=== PATIENT | male | born 1990 | race Caucasian/White ===

== ENCOUNTER 2020-07-21 12:04 | Emergency (ER) | payer OTHER ==
[~2020-07-21] VITALS: Ht 170.2 cm; Wt 74.7 kg
[2020-07-21] MEDS ORDERED: ONDANSETRON PF 4 MG/2 ML VIAL. IVP ONE (12:15)
[2020-07-21] MEDS ORDERED: IV NORMAL SALINE 1000ML BAG 1,000 ML IV ONE (12:15)
[2020-07-21 13:03] LABS: BASO % 0 % (0-3); EOS # 0.3 x10^3/uL (0.0-0.7); EOS % 4 % (0-3); HEMATOCRIT 43.4 % (39.0-53.0); HEMOGLOBIN 15.1 g/dL (13.0-17.5); LYMPH # 1.4 x10^3/uL (1.0-4.8); LYMPH % 21 % (24-48); MEAN CORPUSCULAR HEMOGLOBIN 29 pg (25-35); MEAN CORPUSCULAR HGB CONC 35 g/dL (31-37); MEAN CORPUSCULAR VOLUME 85 fL (79-100); MONO # 0.9 x10^3/uL (0.0-1.1); MONO % 14 % (0-9); NEUT # 4.1 x10^3/uL (1.8-7.7); NEUT % 61 % (31-73); PLATELET COUNT 266 x10^3/uL (140-400); RED BLOOD COUNT 5.14 x10^6/uL (4.30-5.70); RED CELL DISTRIBUTION WIDTH 12.8 % (11.5-14.5); WHITE BLOOD COUNT 6.8 x10^3/uL (4.0-11.0)
[2020-07-21 13:13] LABS: CALCIUM 8.4 mg/dL (8.5-10.1)
[2020-07-21 13:19] LABS: ALBUMIN 3.8 g/dL (3.4-5.0); ALBUMIN/GLOBULIN RATIO 1.4 (1.0-1.7); MAGNESIUM 1.5 mg/dL (1.8-2.4); TOTAL PROTEIN 6.5 g/dL (6.4-8.2)
[2020-07-21 13:30] VITALS: BP 139/69
[2020-07-21 13:42] LABS: BILIRUBIN,URINE SMALL (NEG); CLARITY,URINE CLEAR; COLOR,URINE YELLOW; NITRITE,URINE NEGATIVE (NEG); PH,URINE 5.5 (<5.0-8.0); PROTEIN,URINE NEGATIVE (NEG-TRACE); UROBILINOGEN,URINE 0.2 mg/dL (0.2 mg/dL)
[2020-07-21] MEDS ORDERED: IOHEXOL 300 MG/ML 100ML VIAL. ONE (13:44)
[2020-07-21] MEDS ORDERED: CONTRAST GIVEN. MC PRN (13:45)
[2020-07-21] MEDS ORDERED: IOHEXOL 300 MG/ML 100ML VIAL. IV ONE (13:45)
[2020-07-21 13:56] LABS: BACTERIA,URINE 0 /HPF (0-FEW); RBC,URINE OCC /HPF (0-2)
--- NOTE | 2020-07-21 14:20 | RAD ---
INDICATION: Reason: left side abdominal pain / Spl. Instructions: [id number] 75ML [phone] / Histor y: . COMPARISON: None. TECHNIQUE: Axial CT images obtained through the abdomen and pelvis with contrast. One or more of the following individualized dose reduction techniques were utilized for this examinat ion: 1. Automated exposure control; 2. Adjustment of the mA and/or kV according to patient size; 3 . Use of iterative reconstruction technique. FINDINGS: Abdominal aorta is not aneurysmal. High density structures at the penile region could be calcifications or postoperative. No intrahepatic bile duct dilation. No peripancreatic fluid collection. Spleen unremarkable. No hydronephrosis. Small amount of fluid is seen within the right greater than left hemipelvis. This abuts the urinary b ladder but appears separate from it. The appendix is partially seen and does not appear dilated. There are scattered lymph nodes seen throughout the mesentery which are prominent. For example left s christina of the mesentery at the level of the kidneys measuring up to 10 mm short axis. No dilated loops of bowel to suggest obstruction. IMPRESSION: * No evidence of bowel obstruction. The partially visualized appendix does not appear grossly inflam ed. * Small amount of free fluid in the pelvis of unknown etiology. * There are some scattered prominent lymph nodes within the mesentery. Most commonly reactive in ariadna ure in a patient of this age unless they have history or risk factors for neoplasm. * No hydronephrosis. Electronically signed by: Akira Lan MD (07/21/2020 2:17 PM) [id number]
--- NOTE | 2020-07-21 14:27 | PHYS DOC ---
Past Medical History Past Medical History: Diabetes-Type I Additional Past Medical Histor: hep c Past Surgical History: Other Additional Past Surgical Histo: septum surgery, laser eye surgery Smoking Status: Former Smoker Alcohol Use: None General Adult EDM: Chief Complaint: NAUSEA/VOMITING/DIARRHEA HPI: HPI: Patient is a 30 year old male who was brought here from [facility] for evaluation of nausea vomiting diarrhea and left abdominal pain for the last 3 days. Patient denies any fever, no cough patient has history of diabetic, is on insulin. Patient denies any recent antibiotic usage, denies any blood in his stool. Review of Systems: Review of Systems: Constitutional: Denies fever or chills. [] Eyes: Denies change in visual acuity. [] HENT: Denies nasal congestion or sore throat. [] Respiratory: Denies cough or shortness of breath. [] Cardiovascular: Denies chest pain or edema. [] GI: Positive for left abdominal pain with nausea vomiting diarrhea : Denies dysuria. [] Musculoskeletal: Denies back pain or joint pain. [] Integument: Denies rash. [] Neurologic: Denies headache, focal weakness or sensory changes. [] Endocrine: Denies polyuria or polydipsia. [] Lymphatic: Denies swollen glands. [] Psychiatric: Denies depression or anxiety. [] Heart Score: C/O Chest Pain: N/A Risk Factors: Risk Factors: DM, Current or recent (<one month) smoker, HTN, HLP, family history of CAD, obesity. Risk Scores: Score 0 - 3: 2.5% MACE over next 6 weeks - Discharge Home Score 4 - 6: 20.3% MACE over next 6 weeks - Admit for Clinical Observation Score 7 - 10: 72.7% MACE over next 6 weeks - Early Invasive Strategies Current Medications: Current Medications Medications (Trade) Dose Ordered Sig/Tran Start Time Stop Time Status Last Admin Dose Admin Info (CONTRAST GIVEN -- Rx MONITORING) 1 each PRN DAILY PRN 07/21/20 13:45 07/23/20 13:44 Iohexol (Omnipaque 300 Mg/ml) 100 ml STK-MED ONCE 07/21/20 13:44 07/21/20 13:44 DC Magnesium Sulfate 50 ml @ 25 mls/hr 1X ONCE 07/21/20 14:30 07/21/20 16:29 UNV Ondansetron HCl (Zofran) 4 mg 1X ONCE 07/21/20 12:15 07/21/20 12:54 DC 07/21/20 12:57 4 MG Sodium Chloride 1,000 ml @ 1,000 mls/hr 1X ONCE 07/21/20 12:15 07/21/20 13:14 DC 07/21/20 12:58 1,000 MLS/HR Allergies: Allergies: Allergies Coded Allergies Type Severity Reaction Last Updated Verified linezolid Allergy Intermediate 07/21/20 Yes Physical Exam: PE: Constitutional: Well developed, well nourished, no acute distress, non-toxic appearance. [] HENT: Normocephalic, atraumatic, bilateral external ears normal, oropharynx moist, no oral exudates, nose normal. [] Eyes: PERRLA, EOMI, conjunctiva normal, no discharge. [] Neck: Normal range of motion, no tenderness, supple, no stridor. [] Cardiovascular:Heart rate regular rhythm, no murmur [] Lungs & Thorax: Bilateral breath sounds clear to auscultation [] Abdomen: Bowel sounds normal, soft, left upper quadrant and left lower quadrant abdominal pain, no guarding, no rebound. Skin: Warm, dry, no erythema, no rash. [] Back: No tenderness, no CVA tenderness. [] Extremities: No tenderness, no cyanosis, no clubbing, ROM intact, no edema. [] Neurologic: Alert and oriented X 3, normal motor function, normal sensory function, no focal deficits noted. [] Psychologic: Affect normal, judgement normal, mood normal. [] Current Patient Data: Labs: Laboratory Tests Test 07/21/20 12:50 07/21/20 13:30 White Blood Count 6.8 x10^3/uL (4.0-11.0) Red Blood Count 5.14 x10^6/uL (4.30-5.70) Hemoglobin 15.1 g/dL (13.0-17.5) Hematocrit 43.4 % (39.0-53.0) Mean Corpuscular Volume 85 fL (79-100) Mean Corpuscular Hemoglobin 29 pg (25-35) Mean Corpuscular Hemoglobin Concent 35 g/dL (31-37) Red Cell Distribution Width 12.8 % (11.5-14.5) Platelet Count 266 x10^3/uL (140-400) Neutrophils (%) (Auto) 61 % (31-73) Lymphocytes (%) (Auto) 21 % (24-48) L Monocytes (%) (Auto) 14 % (0-9) H Eosinophils (%) (Auto) 4 % (0-3) H Basophils (%) (Auto) 0 % (0-3) Neutrophils # (Auto) 4.1 x10^3/uL (1.8-7.7) Lymphocytes # (Auto) 1.4 x10^3/uL (1.0-4.8) Monocytes # (Auto) 0.9 x10^3/uL (0.0-1.1) Eosinophils # (Auto) 0.3 x10^3/uL (0.0-0.7) Basophils # (Auto) 0.0 x10^3/uL (0.0-0.2) Sodium Level 144 mmol/L (136-145) Potassium Level 4.0 mmol/L (3.5-5.1) Chloride Level 106 mmol/L (98-107) Carbon Dioxide Level 28 mmol/L (21-32) Anion Gap 10 (6-14) Blood Urea Nitrogen 14 mg/dL (8-26) Creatinine 1.0 mg/dL (0.7-1.3) Estimated GFR (Cockcroft-Gault) 89.0 BUN/Creatinine Ratio 14 (6-20) Glucose Level 131 mg/dL (70-99) H Calcium Level 8.4 mg/dL (8.5-10.1) L Magnesium Level 1.5 mg/dL (1.8-2.4) L Total Bilirubin 1.0 mg/dL (0.2-1.0) Aspartate Amino Transferase (AST) 29 U/L (15-37) Alanine Aminotransferase (ALT) 18 U/L (16-63) Alkaline Phosphatase 78 U/L (46-116) Total Protein 6.5 g/dL (6.4-8.2) Albumin 3.8 g/dL (3.4-5.0) Albumin/Globulin Ratio 1.4 (1.0-1.7) Lipase 31 U/L (73-393) L Urine Collection Type Unknown Urine Color Yellow Urine Clarity Clear Urine pH 5.5 (<5.0-8.0) Urine Specific [place] >=1.030 (1.000-1.030) Urine Protein Negative mg/dL (NEG-TRACE) Urine Glucose (UA) Negative mg/dL (NEG) Urine Ketones (Stick) Trace mg/dL (NEG) Urine Blood Trace (NEG) Urine Nitrite Negative (NEG) Urine Bilirubin Small (NEG) Urine Urobilinogen Dipstick 0.2 mg/dL (0.2 mg/dL) Urine Leukocyte Esterase Negative (NEG) Urine RBC Occ /HPF (0-2) Urine WBC 1-4 /HPF (0-4) Urine Squamous Epithelial Cells Few /LPF Urine Bacteria 0 /HPF (0-FEW) Urine Mucus Mod /LPF Laboratory Tests 07/21/20 12:50 Laboratory Tests 07/21/20 12:50 Vital Signs: Vital Signs Date Time Temp Pulse Resp B/P (MAP) Pulse Ox O2 Delivery O2 Flow Rate FiO2 07/21/20 12:18 97.8 87 18 118/62 (80) 97 Room Air 97.8 EKG: EKG: [] Radiology/Procedures: Radiology/Procedures: [][facility] [address] [place] [address] IMAGING REPORT Signed PATIENT: ISAAK STEWART ACCOUNT: [id number] : 1990 LOCATION: ER AGE: 30 SEX: M EXAM STATUS: REG ER ORD. PHYSICIAN: GINA KIM DO REASON: left side abdominal pain PROCEDURE: CT ABD PELV W/ IV CONTRST ONLY INDICATION: Reason: left side abdominal pain / Spl. Instructions: [id number] [phone] / History: . COMPARISON: None. TECHNIQUE: Axial CT images obtained through the abdomen and pelvis with contrast. One or more of the following individualized dose reduction techniques were utilized for this examination: 1. Automated exposure control; 2. Adjustment of the mA and/or kV according to patient size; 3. Use of iterative reconstruction technique. FINDINGS: Abdominal aorta is not aneurysmal. High density structures at the penile region could be calcifications or postoperative. No intrahepatic bile duct dilation. No peripancreatic fluid collection. Spleen unremarkable. No hydronephrosis. Small amount of fluid is seen within the right greater than left hemipelvis. This abuts the urinary bladder but appears separate from it. The appendix is partially seen and does not appear dilated. There are scattered lymph nodes seen throughout the mesentery which are prominent. For example left side of the mesentery at the level of the kidneys measuring up to 10 mm short axis. No dilated loops of bowel to suggest obstruction. IMPRESSION: * No evidence of bowel obstruction. The partially visualized appendix does not appear grossly inflamed. * Small amount of free fluid in the pelvis of unknown etiology. * There are some scattered prominent lymph nodes within the mesentery. Most commonly reactive in nature in a patient of this age unless they have history or risk factors for neoplasm. * No hydronephrosis. Electronically signed by: Jadyn Lan MD (07/21/2020 2:17 PM) [id number] DICTATED and SIGNED BY: JADYN LAN MD DATE: 07/21/20 [id number] 0 Course & Med Decision Making: Course & Med Decision Making Pertinent Labs and Imaging studies reviewed. (See chart for details) Patient is a 30-year-old male who presented to ER due to nausea vomiting diarrhea with abdominal pain. CT scan did not show any acute problem. Patient was evaluated dehydrated, had magnesium level was low, patient was given IV fluid and IV magnesium in the ER, patient was stable to be [facility]. Stephanie Disclaimer: Stephanie Disclaimer: This electronic medical record was generated, in whole or in part, using a voice recognition dictation system. Departure Departure Impression: Primary Impression: Gastroenteritis Additional Impressions: Hypomagnesemia Dehydration Left sided abdominal pain Disposition: HOME / SELF CARE / HOMELESS Condition: IMPROVED Referrals: NO PCP (PCP) [facility] this [facility] Patient Instructions: Flank Pain, Hypomagnesemia, Viral Gastroenteritis Additional Instructions: Thank you for visiting our Emergency Department. We appreciate you trusting us with your care. If any additional problems come up don't hesitate to return to visit us. Please follow up with your primary care provider so they can plan additional care if needed and know about the problem that you had. If symptoms worsen come back to the Emergency Department. Any concerning symptoms that start such as chest pain, shortness of air, weakness or numbness on one side of the body, running high fevers or any other concerning symptoms return to the ER. GINA KIM DO Jul 21, 2020 14:27
[2020-07-21] MEDS ORDERED: MAGNESIUM SULFATE 2GM 50 ML IV ONE (14:30)
[2020-07-21] MEDS ORDERED: KETOROLAC 30 MG/ML VIAL. IVP ONE (14:45)
== END 2020-07-21 15:35 | disposition home or self-care (01) ==
LOC: EEVIPCON 12:04 → ER 12:04
DX: K52.9 Noninfective gastroenteritis and colitis, unspecified (principal); E86.0 Dehydration; E83.42 Hypomagnesemia; E10.9 Type 1 diabetes mellitus without complications; Z87.891 Personal history of nicotine dependence; Z88.8 Allergy status to other drugs, medicaments and biological substances
CPT/HCPCS: 36415; 74177; 80053; 81001; 83690; 83735; 85025; 96361; 96365; 96375; 99285; J1885; J2405; J3475; J7030; Q9967